=== PATIENT | male | born 1945 | race Caucasian/White ===

== ENCOUNTER 2017-04-30 07:19 | Day surgery (SDC) | payer MEDICARE, BC ==
[2017-04-24 08:58] VITALS: BMI 22.4
[~2017-04-30 07:19] MED LIST: LACTATED RINGERS 1,000 ML IV SCH; LIDOCAINE 1% 20 ML VIAL (10MG/ML) FOR IV START INTRADERMA PRN; MOXIFLOXACIN HCL 0.5% DROPS 3 ML BTL OP ONE; TETRACAINE 0.5% OPHTH (PF) DROPS 4 ML BTL OP ONE; TIMOLOL 0.5% OPHTH DROPS 5 ML BTL OP ONE
[2017-04-30 07:54] VITALS: RESP 18; TEMP 97.9
[2017-04-30] MEDS: CYCLOPENTOLATE 1% OPHTH SOLN 2 ML BTL OP ONE ×3 (07:56→08:13)
[2017-04-30] MEDS: PHENYLEPHRINE 2.5% OPHTH DRP 2ML OP NR ×3 (08:00→08:16)
[2017-04-30] MEDS ORDERED: fentaNYL (PF) 50 MCG/ML 2 ML AMP ONE (08:47)
[2017-04-30] MEDS ORDERED: MIDAZOLAM 2 MG/2 ML VIAL ONE (08:47)
[2017-04-30] MEDS ORDERED: EPINEPHrine (PF) 0.3 ML in BALANCED SALT IRRIG SOLN COMB2 500 ML IRRIGATION ONE (08:51)
[2017-04-30] MEDS ORDERED: BALANCED SALT IRRIG SOLN COMB2 15 ML IRRIG.SOLN IRRIGATION ONE (08:53)
[2017-04-30] MEDS ORDERED: DUOVISC KIT (GREEN BOX) INTRAOCULA ONE (08:53)
[2017-04-30] MEDS ORDERED: LIDOCAINE 1% (PF) 10MG/ML VIAL INTRAARTIC ONE (08:54)
--- NOTE | 2017-04-30 09:18 | P.OP ---
Date of Procedure: 04/30/17 Preoperative Diagnosis: NS Postoperative Diagnosis: same Procedure(s) Performed: PIOL, OD Implants: PCB00 15.00 Anesthesia: MAC Surgeon: Cabrera Quijano Estimated Blood Loss (ml): 0 Pathology: none sent Condition: stable Disposition: same day Indications for Procedure: blurry vision Operative Findings: no complications
[2017-04-30 09:49] VITALS: BP 127/70; PULSE 50
--- NOTE | 2017-05-01 07:48 | OP ---
OPERATIVE REPORT DATE OF SURGERY: April 30, 2017 PREOPERATIVE DIAGNOSIS:: Nuclear sclerosis. POSTOPERATIVE DIAGNOSIS:: Same. OPERATION:: Phacoemulsification of cataract and intraocular lens implant of the right eye. ESTIMATED BLOOD LOSS:: Zero. SPECIMEN TAKEN:: None. NARRATIVE:: After obtaining the appropriate consent, the patient was brought to the Operating Room where the patient was placed under cardiac monitoring and prepped and draped in the usual sterile manner. At the 11 o'clock position a 15 degree super sharp blade was used to create a paracentesis followed by instillation of 1% Xylocaine MPF 50:50 mix with BSS into the anterior chamber. This was followed by Duovisc to stabilize the anterior chamber. At the 9 o'clock position a self-sealing corneal flap incision was created using 2.8 mm roman keratome. A cystatome was used to initiate a continuous tear capsulorrhexis which was completed with the Utrata forceps. A Binkhorst cannula was used to hydrodissect the lens nucleus followed by hydrodelineation. Phacoemulsification of the lens was performed utilizing phacochop in 19.27 seconds at 9% power. The remaining cortical material was removed using the irrigation aspiration mode followed by additional 1% Xylocaine MPF into the anterior chamber followed by viscoelastic to stabilize the capsular bag. An JESSICA PCB 00 15.0 diopter posterior chamber lens was placed into the capsular bag without difficulty. The remaining viscoelastic material was removed from the anterior chamber with the irrigation/aspiration. Balanced salt solution was used to normalize the intraocular pressure. The incision was checked for watertight integrity. The patient then received two drops of 0.5% timolol followed by two drops Vigamox, was lightly patched and shielded in the usual manner. There were no complications from the procedure. The patient tolerated the procedure well and was returned to recovery in good condition. MMODL / IJN: [id number] /
== END 2017-04-30 10:00 | disposition home or self-care (01) ==
LOC: OR 07:19
PROVIDERS: ATTEND Ophthalmology
DX: H25.13 Age-related nuclear cataract, bilateral (principal); H40.011 Open angle with borderline findings, low risk, right eye; H52.223 Regular astigmatism, bilateral; H52.13 Myopia, bilateral; H52.4 Presbyopia; H00.026 Hordeolum internum left eye, unspecified eyelid; H00.023 Hordeolum internum right eye, unspecified eyelid; K21.9 Gastro-esophageal reflux disease without esophagitis; I10 Essential (primary) hypertension; R01.1 Cardiac murmur, unspecified; Z79.82 Long term (current) use of aspirin; Z79.1 Long term (current) use of non-steroidal anti-inflammatories (NSAID); Z79.51 Long term (current) use of inhaled steroids; Z79.899 Other long term (current) drug therapy
CPT/HCPCS: 66984; C1780; J2250; J0171; J3010; J2001

== ENCOUNTER → 2022-01-04 | Outpatient (CLI) | payer MEDICARE, BC ==
--- NOTE | 2022-01-07 11:33 | MR ---
EXAMINATION TYPE: MR Prostate wo/w con DATE OF EXAM: 01/04/2022 10:36 AM COMPARISON: None. CLINICAL INDICATION:Male, 76 years old with history of R97.20 elevated psa; TECHNIQUE: Multi-planar, multi-sequence imaging of the pelvis is performed prior to and following the uncomplicated administration of bolus intravenous gadolinium. CONTRAST: 7 Gadavist Interpretive Criteria: PI-RADS v2.1 SERUM PSA: 6.4 on 12/11/2021 SURGICAL PATHOLOGY: No data available. FINDINGS: Prostatic dimensions: 4.2 x 4.2 x 5.3 cm. "Bullet" Volume: 61.19 (PSA density=0.10 ng/mL/mL) Motion degrades evaluation. CENTRAL GLAND (Central and Transition Zones/CZ+TZ): Multiple bilateral, heterogenous appearing hypertrophic stromal nodules, without suspicious lesion. M edian lobe hypertrophy with protrusion into the base of the bladder. (PI-RADS 2) PERIPHERAL ZONE (PZ): Anterior left peripheral zone mid gland 6 mm area of low T2 signal with corresponding high DWI and lo w ADC signal. (Series 601 image 18) PI-RADS 4 Left posterior near midline 3 mm focus of low T2 signal without definitive restricted diffusion (seri es 601 image 19) likely representing scarring given lack of restricted diffusion. PI-RADS 2 SEMINAL VESICLES (SV): Symmetric and unremarkable. PERIPROSTATIC TISSUES: Unremarkable. LYMPH NODES: No enlarged pelvic lymph node. REMAINING PELVIS: Bladder wall density left bladder diverticulum laterally with trabeculated bladder traore. No abnormal free or organized intrapelvic fluid collection. No pathologic bowel dilation or mural thickening. Right fat containing inguinal hernia. Scattered clonic diverticula are present. There is nondistended sigmoid colon. OSSEOUS STRUCTURES: No suspicious osseous abnormality. IMPRESSION: 1. PI-RADS 4 lesion in the anterior left peripheral zone of the mid gland 2. Moderate BPH, estimated gland volume 61 mL. 3. No suspicious osseous lesion. No lymphadenopathy. No evidence of prostate adenocarcinoma involving the periprostatic tissues.
== END | disposition home or self-care (01) ==
LOC: RADMRIMAIN 09:10
PROVIDERS: ATTEND Urology
DX: N40.0 Benign prostatic hyperplasia without lower urinary tract symptoms (principal)
CPT/HCPCS: 72197; A9585